=== PATIENT | male | born 1985 | race African-American/Black ===

== ENCOUNTER 2021-12-18 19:04 | Emergency (ER) | payer MEDICAID ==
[~2021-12-18] VITALS: Ht 162.6 cm; Wt 70.0 kg
[2021-12-18] MEDS ORDERED: ONDANSETRON HCL 4MG/2ML INJ IV STA (20:01)
[2021-12-18] MEDS ORDERED: SODIUM CHLORIDE 0.9% 1,000 ML IV ONE ×2 (20:15→23:30)
[2021-12-18 20:29] LABS: BASOPHILS % 0.5 % (0.0-2.0); EOSINOPHILS % 0.6 % (0.0-5.0); HEMATOCRIT. 49.1 % (42.0-52.0); LYMPHOCYTES % 15.4 % (20.0-50.0); MEAN CORPUSCULAR HEMOGLOBIN 31.4 pg (28.0-32.0); MEAN CORPUSCULAR VOLUME 96.6 fL (80.0-94.0); MEAN PLATELET VOLUME 9.2 fl (7.4-10.4); MONOCYTES % 7.7 % (2.0-8.0); NEUTROPHILS % 75.8 % (40.0-76.0); PLATELET 256 x1000/uL (130-400); RED BLOOD CELL COUNT 5.08 mill/uL (4.7-6.1); RED CELL DISTRIBUTION WIDTH 14.5 % (11.6-14.6)
[2021-12-18 20:35] LABS: CHLORIDE 105 mEq/L (98-107)
[2021-12-18 20:37] LABS: PROTHROMBIN TIME 10.4 sec (9.6-11.0)
[2021-12-18] MEDS ORDERED: ONDANSETRON HCL 4MG/2ML INJ IV NR (22:15)
[2021-12-18] MEDS ORDERED: KETOROLAC 30MG/ML VIAL IV STA (23:21)
[2021-12-18] MEDS ORDERED: METOCLOPRAMIDE HCL 10MG/2ML VIAL IV ONE (23:30)
[2021-12-19 00:17] LABS: HEMATOCRIT 45.9 % (42.0-52.0)
[2021-12-19] MEDS ORDERED: PROT40 MT (00:51)
[2021-12-19] MEDS ORDERED: ONDA4TAB50 MT (00:51)
[2021-12-19 01:10] VITALS: BP 121/76
== END 2021-12-19 01:12 | disposition home or self-care (01) ==
LOC: ER 19:04
DX: R10.9 Unspecified abdominal pain (principal); R11.2 Nausea with vomiting, unspecified; Z87.891 Personal history of nicotine dependence
CPT/HCPCS: 36415; 74176; 80053; 83690; 85014; 85018; 85025; 85610; 96361; 96374; 96375; 99284; J1885; J2405; J2765; J7030